=== PATIENT | female | born 1985 | race Two or more races ===

== ENCOUNTER 2016-12-09 08:53 | Emergency (ER) | payer MEDICAID ==
[~2016-12-09] VITALS: Ht 152.4 cm; Wt 94.3 kg
[2016-12-09 08:59] VITALS: BP 144/98
== END 2016-12-09 09:47 | disposition home or self-care (01) ==
LOC: ER 08:59
DX: T16.2XXA Foreign body in left ear, initial encounter (principal); X58.XXXA Exposure to other specified factors, initial encounter; Y93.89 Activity, other specified; Y92.89 Other specified places as the place of occurrence of the external cause; Y99.8 Other external cause status
CPT/HCPCS: 69200

== ENCOUNTER 2020-04-26 14:30 | Emergency (ER) | payer MEDICAID ==
[~2020-04-26] VITALS: Ht 160 cm; Wt 97.5 kg
[~2020-04-26 14:30] MED LIST: PREN-96 PO
[2020-04-26 14:39] VITALS: BP 174/94
== END 2020-04-26 22:52 | disposition home or self-care (01) ==
LOC: ER 14:30
DX: H60.91 Unspecified otitis externa, right ear (principal)